=== PATIENT | female | born 1990 | race Two or more races ===

== ENCOUNTER 2020-06-11 08:40 | Outpatient (CLI) | payer OTHER | END 2020-06-11 09:00 | disposition home or self-care (01) | LOC: RX STUDY 08:40 | PROVIDERS: ATTEND Obstetrics & Gynecology Maternal & Fetal Medicine | DX: N80.8 Other endometriosis (principal) ==

== ENCOUNTER 2022-05-21 12:10 | Day surgery (SDC) | payer OTHER ==
[~2022-05-21] VITALS: Ht 162.6 cm; Wt 67.1 kg
== END 2022-05-21 14:20 | disposition home or self-care (01) ==
LOC: CIR.AMB 12:10
PROVIDERS: ATTEND Obstetrics & Gynecology
DX: O34.32 Maternal care for cervical incompetence, second trimester (principal); Z3A.14 14 weeks gestation of pregnancy; Z88.6 Allergy status to analgesic agent; Z86.16 Personal history of COVID-19; Z20.822 Contact with and (suspected) exposure to COVID-19

== ENCOUNTER 2022-05-23 09:06 | Day surgery (SDC) | payer OTHER | END 2022-05-23 17:20 | disposition home or self-care (01) | LOC: CIR.AMB 09:06 | PROVIDERS: ATTEND Obstetrics & Gynecology | DX: O34.32 Maternal care for cervical incompetence, second trimester (principal); Z3A.14 14 weeks gestation of pregnancy; Z88.6 Allergy status to analgesic agent; Z86.16 Personal history of COVID-19; Z20.822 Contact with and (suspected) exposure to COVID-19 ==

== ENCOUNTER 2022-07-10 16:00 | Outpatient (CLI) | payer OTHER | END 2022-07-10 17:01 | disposition home or self-care (01) | LOC: NST 16:00 | PROVIDERS: ATTEND Obstetrics & Gynecology Gynecology | DX: Z34.82 Encounter for supervision of other normal pregnancy, second trimester (principal) ==

== ENCOUNTER 2022-08-01 10:23 | Outpatient (CLI) | payer OTHER | END 2022-08-01 10:42 | disposition home or self-care (01) | LOC: NST 10:23 | PROVIDERS: ATTEND Obstetrics & Gynecology Maternal & Fetal Medicine | DX: Z34.82 Encounter for supervision of other normal pregnancy, second trimester (principal) ==

== ENCOUNTER 2022-10-03 15:34 | Outpatient (CLI) | payer OTHER ==
[~2022-10-03 15:34] MED LIST: NIFEDIPINE ER30 M1; STOOL SOFTENER240 MG
[2022-10-03] MEDS ORDERED: PRENATAL TABLE1 EAC3 (19:08)
== END 2022-10-03 15:53 | disposition home or self-care (01) ==
LOC: NST 15:34
PROVIDERS: ATTEND Obstetrics & Gynecology
DX: Z34.83 Encounter for supervision of other normal pregnancy, third trimester (principal)

== ENCOUNTER 2022-10-22 14:22 | Inpatient (IN) | payer OTHER ==
[~2022-10-22] VITALS: Ht 162.6 cm; Wt 78.5 kg
[~2022-10-22 14:22] MED LIST changes: +PRENATAL TABLE1 EAC3
[2022-11-05] MEDS ORDERED: VISTARIL50 MG (10:22)
== END 2022-11-07 14:15 | disposition home or self-care (01) | DRG 807 ==
LOC: OB/GYN 10-23 14:22 → LDR 11-05 08:31 → OB/GYN 11-05 20:19
PROVIDERS: ADMIT Obstetrics & Gynecology; ATTEND Obstetrics & Gynecology
PROC: 10E0XZZ Delivery of Products of Conception, External Approach (ICD-10-PCS; principal; 2022-11-05)
PROC: 0KQM0ZZ Repair Perineum Muscle, Open Approach (ICD-10-PCS; 2022-11-05)
PROC: 4A1HXCZ Monitoring of Products of Conception, Cardiac Rate, External Approach (ICD-10-PCS; 2022-11-05)
DX: O70.1 Second degree perineal laceration during delivery (principal); Z37.0 Single live birth; Z3A.38 38 weeks gestation of pregnancy; Z20.822 Contact with and (suspected) exposure to COVID-19

== ENCOUNTER 2022-10-30 17:55 | Outpatient (CLI) | payer OTHER | END 2022-10-30 18:21 | disposition home or self-care (01) | LOC: NST 17:55 | PROVIDERS: ATTEND Obstetrics & Gynecology Gynecology | DX: Z34.83 Encounter for supervision of other normal pregnancy, third trimester (principal) ==

== ENCOUNTER 2022-11-14 22:16 | Inpatient (IN) | payer OTHER ==
[~2022-11-14] VITALS: Ht 162.6 cm; Wt 70.3 kg
[~2022-11-14 22:16] MED LIST changes: +VISTARIL50 MG
[2022-11-14] MEDS ORDERED: CLONAZEPAM0.5 MG PO (22:30)
== END 2022-11-15 14:12 | disposition home or self-care (01) | DRG 776 ==
LOC: LDR 22:16
PROVIDERS: ADMIT Obstetrics & Gynecology Gynecology; ATTEND Obstetrics & Gynecology Gynecology
DX: O14.15 Severe pre-eclampsia, complicating the puerperium (principal); Z20.822 Contact with and (suspected) exposure to COVID-19

== ENCOUNTER 2025-07-07 10:14 | Emergency (ER) | payer OTHER ==
[~2025-07-07] VITALS: Ht 162.6 cm; Wt 63.5 kg
[~2025-07-07 10:14] MED LIST changes: +CLONAZEPAM0.5 MG PO
[2025-07-07] MEDS ORDERED: BUSPIRONE HCL5 MG PO (10:20)
[2025-07-07] MEDS ORDERED: ORPHENADRINE CITRATE 30 MG/ML AMPUL IM STA (11:27)
[2025-07-07 12:21] LABS: BASO % 0.6 % (0.1-1.2); EOS # 0.08 (0.04-0.54); EOS % 0.8 % (0.7-7.0); LYMPH # 1.61 (1.18-3.74); LYMPH % 16.5 % (19.3-53.1); MEAN PLATELET VOLUME 11.40 fl (9.4-12.4); MONO # 0.48 (0.24-0.82); MONO % 4.9 % (4.7-12.5); NEUT # 7.50 (1.56-6.13); NEUT % 76.8 % (34.0-71.1); RED CELL DISTRIBUTION WIDTH 12.8 % (11.6-14.4)
[2025-07-07 12:46] LABS: ALT/SGPT 33.0 U/L (12-78); AST/SGOT 26.0 U/L (15-37); BILIRUBIN TOTAL 0.48 mg/dL (0.3-1.2); BUN CREA RATIO 9.0 (7.0-25.0); CREATININE SERUM 0.85 mg/dL (0.55-1.02); GFR 75.26; GLOBULINA 3.3 G/DL (2.4-3.5); GLUCOSE FASTING 129.0 mg/dL (65-100); OSMOLALITY SERUM 283.0 MOSM/KG (275-295)
== END 2025-07-07 13:25 | disposition home or self-care (01) ==
LOC: ER 10:14
PROVIDERS: General Practice
DX: I10 Essential (primary) hypertension (principal); Z88.6 Allergy status to analgesic agent